=== PATIENT | female | born 1955 | race Caucasian/White ===

== ENCOUNTER → 2020-12-24 | Outpatient (CLI) | payer MEDICARE, OTHER ==
[2020-12-25 13:13] LABS: COMPLEMENT C3, SERUM 163 mg/dL (82-167); COMPLEMENT C4, SERUM 32 mg/dL (12-38); RHEUMATOID ARTHRITIS FACTOR <10.0 IU/mL (0.0-13.9)
[2020-12-25 17:13] LABS: DSDNA CRITHIDIA LUCILIAE IFA Negative (Negative)
== END ==
LOC: LAB 13:37
PROVIDERS: Nurse Practitioner Family
DX: M25.50 Pain in unspecified joint (principal); D89.9 Disorder involving the immune mechanism, unspecified; R76.8 Other specified abnormal immunological findings in serum; M19.90 Unspecified osteoarthritis, unspecified site; M79.10 Myalgia, unspecified site; L93.0 Discoid lupus erythematosus
CPT/HCPCS: 36415; 81001; 82550; 82570; 83520; 84156; 85652; 86140; 86160; 86162; 86200; 86255; 86431

== ENCOUNTER → 2021-01-06 | Outpatient (CLI) | payer MEDICARE, OTHER | LOC: EXRD 13:55 | DX: M50.30 Other cervical disc degeneration, unspecified cervical region (principal); G89.29 Other chronic pain | CPT/HCPCS: 72040 ==